=== PATIENT | male | born 1960 | race Caucasian/White ===

== ENCOUNTER 2019-02-03 07:57 | Day surgery (SDC) | payer BC ==
[~2019-02-03 07:57] MED LIST: Buffered Lidocaine 1% SYRIN* 1 ML/SYRINGE INTRADERM ONE; Dexamethasone IV* 4 MG/ML 1 ML (4 MG) IV SLOW PU ONE; Famotidine IV* 10 MG/ML 2 ML (20 mg) IV ONE; Lactated Ringers 1000 ML Bag* 1,000 ML IV SCH
[2019-02-03] MEDS ORDERED: ceFAZolin 2 GM in NS PREMIX(*) 2 GM/100 ML BAG IVPB ONE (08:36)
[2019-02-03] MEDS ORDERED: Dexamethasone IV* 4 MG/ML 1 ML (4 MG) ONE (08:36)
[2019-02-03] MEDS ORDERED: Famotidine IV* 10 MG/ML 2 ML (20 mg) ONE (08:36)
[2019-02-03] MEDS ORDERED: Midazolam* 1 MG/ML 5 ML VIAL (5 MG) ONE (10:40)
[2019-02-03] MEDS ORDERED: fentaNYL* 50 MCG/ML 2 ML VIAL (100 MCG VIAL) ONE (10:40)
[2019-02-03] MEDS ORDERED: Propofol* 10 MG/ML 20 ML BTL ONE (10:40)
[2019-02-03] MEDS ORDERED: Ondansetron INJ* 2 MG/ML VIAL ONE (10:40)
[2019-02-03] MEDS ORDERED: Bupivacaine 0.5% W/EPI SDV* 30 ML VIAL ONE (11:42)
[2019-02-03] MEDS ORDERED: Lidocain 1% EPI 1:100,000 * 30 ML MDV ONE (11:42)
[2019-02-03] MEDS ORDERED: Naloxone* 0.4 MG/ML 1 ML VIAL IV PRN (12:20)
[2019-02-03] MEDS ORDERED: Ondansetron INJ* 2 MG/ML VIAL IV PRN (12:20)
[2019-02-03] MEDS ORDERED: oxyCODONE/Acetamin 5/325 MG* TAB PO PRN (12:20)
[2019-02-03 13:05] VITALS: BP 105/74
--- NOTE | 2019-02-04 22:10 | OP ---
DATE OF OPERATION: 02/03/19 - [facility] DATE OF : 56 SURGEON: Sandoval Pretty MD SAFETY DEPOSIT CLERK: TAYLOR Michele. A physician casting assistant was required for the length of the procedure for assistance with the patient's positioning, retraction, and closure. ANESTHESIOLOGIST: Dr. Burciaga. ANESTHESIA: Monitored anesthesia care consisting of some mild sedation as well as some local anesthesia, consisting of approximately 18 cc of a 1:1 ratio of Marcaine and lidocaine each with epinephrine. PRE-OP DIAGNOSIS: Right wrist de Quervain's tenosynovitis. POST-OP DIAGNOSIS: Right wrist de Quervain's tenosynovitis. OPERATIVE PROCEDURE: Right wrist open de Quervain's decompression, first dorsal extensor tendon compartment sheath. ANTIBIOTICS: Ancef 2 g IV. IV FLUIDS: See anesthesia note. TOURNIQUET TIME: 22 minutes at 250 mmHg, upper arm tourniquet. SKIN TO SKIN TIME: 19 minutes. SPECIMEN: None. IMPLANTS: None. COMPLICATIONS: None. ESTIMATED BLOOD LOSS: Minimal. INDICATIONS FOR PROCEDURE: The patient is a 58-year-old man, right hand dominant, retired, who presented to me in clinic with over 3 months of radial- sided right wrist pain. It started without traumatic antecedent. It was causing pain with almost all activities of daily living. For treatment, the patient had tried wrist bracing without success. His exam was classic for de Quervain's tenosynovitis of the extensor tendon of the first dorsal compartment. I discussed nonoperative and operative treatment options. The patient opted for surgery. Discussed risks and potential complications of surgery. Ordered an MRI to confirm the diagnosis and signed the patient out for surgery. MRI confirmed significant edema about the tendons in the first dorsal compartment. There was also a TFCC tear noted by MRI of that wrist. DESCRIPTION OF PROCEDURE: In preoperative holding, the patient signed a written consent. Operative extremity was marked in preoperative holding. The patient was taken back to the operating room and remained on the stretcher. Hand table was attached to the stretcher. The patient was given some sedation by Anesthesia. A mini time-out was performed. I injected local anesthesia with 1:1 ratio of lidocaine and marcaine in two locations, one being at or just proximal to the plane of surgical incision and the other being approximately two-thirds of the distance from proximal to distal down the forearm to get all branches of the superficial radial nerve and lateral antebrachial cutaneous nerve. The patient's right upper extremity was prepped and draped after a tourniquet was placed about the right upper arm. A surgical time-out was performed. The tourniquet was inflated after Esmarch had been applied. Tourniquet was inflated to 250 mmHg. A transverse skin incision, 3 cm long, 1.5 cm from the distal aspect of the radial styloid, was placed in skin. I reached subcutaneous tissue. I noted many longitudinal structures including superficial vein and nerves. I gently dissected through the structures, respecting all anatomy. I dissected down to the sheath overlying the first dorsal compartment. I placed a self retractor as well as Dennys retractors. Confirmed that the underlying tendons were APL and EPB by asking the patient to extend his thumb. I made a longitudinal incision in the sheath overlying this compartment at or close to its dorsal most edge. There is much inflammatory tissue noted first within the compartment and then I was able to identify the tendons. There were at least 3 discrete tendons in the compartment. I was able to pull these from the compartment nicely, without any constraints, after I distended the incision along the dorsal edge of the retinaculum from its proximal most extent to its distal most extent right up to bone. I confirmed that there were no additional sub-sheaths or compartments to the first dorsal compartment as the patient moved his thumb. Removed retractors, irrigation. Closed subcutaneous tissue with buried simple stitches using Vicryl 3-0 suture. Closure of the skin with a running stitch with 4-0 nylon. Xeroform, 4x4s, sterile Webril. Radial gutter splint placed. Overwrapped with an Lex bandage. Tourniquet dropped. The patient was lightened of sedation and brought to the PACU. DISPOSITION: The patient received wound care instructions, Percocet as needed for pain control. The patient will follow up with me in 10 to 14 days postoperatively. The patient was to keep dressing intact for 3 days. At the end of 3 days, he can be converted to a thumb spica based wrist splint. He is to remain in that until he sees me in followup 10 to 14 days postoperatively, at which time we will wean him out of that and I will have him go to physical therapy. [id number] #: [id number] [facility]ITAL[facility]erm[facility]
== END 2019-02-03 13:17 | disposition home or self-care (01) ==
LOC: OR 07:57
PROVIDERS: ATTEND Orthopaedic Surgery
DX: M65.4 Radial styloid tenosynovitis [de Quervain] (principal); E11.9 Type 2 diabetes mellitus without complications; Z79.84 Long term (current) use of oral hypoglycemic drugs; E03.9 Hypothyroidism, unspecified; E78.00 Pure hypercholesterolemia, unspecified; F41.8 Other specified anxiety disorders; G47.33 Obstructive sleep apnea (adult) (pediatric); Z87.891 Personal history of nicotine dependence
CPT/HCPCS: J0690; J1100; J2250; J2405; J2704; J3010